=== PATIENT | male | born 1985 | race Caucasian/White ===

== ENCOUNTER 2017-12-24 01:34 | Emergency (ER) | payer OTHER ==
[~2017-12-24] VITALS: Ht 195.6 cm; Wt 122.5 kg
[2017-12-24 01:41] VITALS: BP 113/71
--- NOTE | 2017-12-24 01:49 | NUR ---
PT.BIB TO ER BED 11
--- NOTE | 2017-12-24 02:00 | NUR ---
PATIENT IS A 32 Y/O MALE WHO PRESENTS TO THE ED C/O ABD PAIN. PT STATES THAT HE WAS DINNER AROUND 1700 WHEN HE STARTED FEELING DIZZY. PT REPORTS 8/10 ACHING ABD PAIN THAT DOES NOT RADIATE. PT DENIES CP, SOB, REPORTS NAUSEA/VOMITING DENIES DIARRHEA. PT APPEARS PALE, MILD DIAPHORESIS. PT AAOX4, RR EVEN/UNLABORED, BED IN LOWEST POSITION. ER MD DR. DAUGHERTY NOTIFIED. WILL CONTINUE TO MONITOR. VOMIT BAG AT BEDSIDE. FAMILY AT BEDSIDE.
[2017-12-24] MEDS ORDERED: NACL 0.9% 1,000 ML IV SCH (02:16)
[2017-12-24] MEDS ORDERED: PANTOPRAZOLE 40 MG INJ VIAL IVP ONE (02:20)
[2017-12-24] MEDS ORDERED: ONDANSETRON 4 MG/2 ML VIAL IVP ONE (02:20)
[2017-12-24] MEDS ORDERED: MORPHINE SULFATE 4 MG/ML SYR IVP ONE ×2 (02:20→08:25)
--- NOTE | 2017-12-24 03:00 | NUR ---
PATIENT RESTING AT THIS TIME. NO ACUTE DISTRESS, NO REPORTS OF CP.
--- NOTE | 2017-12-24 04:00 | NUR ---
PATIENT RESTING AT THIS TIME. NO SIGNS OF DISTRESS.
[2017-12-24] MEDS ORDERED: NACL 0.9% 1,000 ML IV ONE ×3 (04:35→08:25)
[2017-12-24 05:13] LABS: APPEARANCE,URINE CLEAR (CLEAR); BILIRUBIN,URINE NEGATIVE (NEGATIVE); BLOOD, URINE NEGATIVE (NEGATIVE); COLOR,URINE YELLOW (YELLOW); NITRITE, URINE NEGATIVE (NEGATIVE); PH,URINE 8.5 (5.0-9.0); UGLUCOSE NEGATIVE (NEGATIVE)
[2017-12-24 05:16] LABS: LEUKOCYTE ESTERASE ,URINE NEGATIVE (NEGATIVE)
[2017-12-24 05:40] LABS: WHITE BLOOD COUNT (AUTO) 12.4 K/uL (4.8-10.8)
[2017-12-24 05:41] LABS: HEMATOCRIT 45.3 % (36-52); MEAN CORPUSCULAR HEMOGLOBIN 29 pg (27-31); MEAN CORPUSCULAR HGB CONC 33 g/dL (33-37); MEAN CORPUSCULAR VOLUME 88.8 fL (80-94); PLATELET COUNT (AUTO) 248 K/uL (140-450); RED BLOOD CELL COUNT(AUTO) 5.11 MIL/uL (4.20-6.10); RED CELL DISTRIBUTION WIDTH 13.2 % (11.6-13.7)
[2017-12-24 05:42] LABS: BASOPHILS # (AUTO) 0.1 K/uL (0.00-0.22); BASOPHILS % (AUTO) 0.6 % (0.0-2.0); LYMPHOCYTES # (AUTO) 0.5 K/uL (2.0-11.5); LYMPHOCYTES % (AUTO) 3.9 % (20.5-51.1); MONOCYTES # (AUTO) 0.2 K/uL (0.8-1.0); MONOCYTES % (AUTO) 1.4 % (1.7-9.3); NEUTROPHILS # (AUTO) 11.6 K/uL (1.8-7.7); NEUTROPHILS % (AUTO) 94.1 % (42.2-75.2)
--- NOTE | 2017-12-24 06:00 | NUR ---
PATIENT IS RESTING AT THIS TIME. NO SIGNS OF DISTRESS.
--- NOTE | 2017-12-24 06:20 | NUR ---
PT C/O PRESSURE IN EPIGASTRIC AREA. KEEGAN NELSON MADE AWARE.
--- NOTE | 2017-12-24 07:00 | NUR ---
Pt report given to FELICITA GOODEN. Transfer of care at this time.
--- NOTE | 2017-12-24 07:10 | NUR ---
PT. IN BED RESTING COMFORTABLY, RR EVEN AND UNLABORED, AAOX4, FLUIDS RUNNING, IV INTACT, PT. STATES " IM FEELING BETTER". MOTHER IS AT BEDSIDE. WILL CONTINUE TO MONITOR.
[2017-12-24 07:18] LABS: ANION GAP 18.9 (8-16); CARBON DIOXIDE 20.4 mmol/L (21-32); CHLORIDE 103 mmol/L (98-107); POTASSIUM 4.3 mmol/L (3.5-5.1); SODIUM SERUM 138 mmol/L (136-145)
[2017-12-24 07:19] LABS: ASPARTATE AMINOTRANSFERASE 19 U/L (15-37); CREATININE 1.1 mg/dL (0.7-1.3); GFR ARICAN-AMERICAN 100 mL/min (>90); GLUCOSE 156 mg/dL (74-106); UREA NITROGEN, BLOOD 18 mg/dL (7-18)
[2017-12-24 07:20] LABS: ALBUMIN 4.1 g/dL (3.4-5.0); AMYLASE 75 U/L (25-115); LIPASE 125 U/L (73-393)
--- NOTE | 2017-12-24 08:10 | NUR ---
PT. AMBULATED TO RESTROOM, STEADY GAIT, RR EVEN AND UNLABORED, DENIES ANY DIZZINESS , DENIES NAUSEA AT THIS TIME. WILL CONTINUE TO MONITOR.
--- NOTE | 2017-12-24 08:56 | NUR ---
PT. BACK FROM CT SCAN . VIA GLORRASTA. RR EVEN AND UNLABORED.
--- NOTE | 2017-12-24 10:51 | NUR ---
PT. RESTING IN BED COMFORTABLY, RR EVEN AND UNLABORED, SISTER AT BEDSIDE. BED IN LOWEST POSTION, WILL CONTINUE TO MONITOR.
--- NOTE | 2017-12-24 12:42 | NUR ---
PT. AAOX4, RESTING COMFORTABLY IN BED, NO CONDITION CHANGE AT THIS TIME, BED IN LOWEST POSITION. WILL CONTINUE TO MONITOR.
[2017-12-24 14:31] VITALS: BP 134/79
--- NOTE | 2017-12-24 14:31 | NUR ---
Patient discharged with v/s stable. Written and verbal after care instructions given and explained. Patient alert, oriented and verbalized understanding of instructions. Ambulatory with steady gait. All questions addressed prior to discharge. ID band removed. Patient advised to follow up with PMD. Rx of norco, reglan, ibuprofen given. Patient educated on indication of medication including possible reaction and side effects. Opportunity to ask questions provided and answered.
== END 2017-12-24 14:31 | disposition home or self-care (01) ==
LOC: MED 01:34
DX: K80.20 Calculus of gallbladder without cholecystitis without obstruction (principal)
CPT/HCPCS: 36415; 74176; 76705; 80053; 81003; 82150; 83605; 83690; 85025; 87040; 93005; 96361; 96374; 96375; 99285; C9113; J2270; J2405; Q0092

== ENCOUNTER 2018-05-21 20:43 | Emergency (ER) | payer OTHER ==
[~2018-05-21] VITALS: Ht 182.9 cm; Wt 126.2 kg
[2018-05-21 20:43] VITALS: BP 127/82
--- NOTE | 2018-05-21 20:44 | NUR ---
PATIENT AMBULATED TO ER BED 8.
--- NOTE | 2018-05-21 20:45 | NUR ---
PT IS A 32 Y/O MALE WHO PRESENTS TO THE ED C/O FINGER PAIN TO LEGT 2ND DIGIT. PT STATES THAT IT HAS BEEN GOING ON X1 WEEK, WAS SEEN AT URGENT CARE WITH GIVEN RX CLINDAMYCIN. PT DENIES TRAUMA AND INJURY. PT DENIES PAIN AT THIS TIME. NOTED MILD SWELLING, MILD ECCHYMOSIS, +PMSC. PT DENIES CP, SOB, N/V/D. PT AWAKE AND ALERT, RR EVEN/UNLABORED. PT REPOSITIONED FOR COMFORT, BED IN LOWEST POSITION. ER MD DR. OLIVIER NOTIFIED. WILL CONTINUE TO MONITOR. PMH: CHOLECYSTECTOMY
--- NOTE | 2018-05-21 20:55 | NUR ---
DR. OLIVIER EVALUATING PATIENT.
--- NOTE | 2018-05-21 21:54 | NUR ---
PATIENT RESTING AT THIS TIME. NO SIGNS OF DISTRESS.
--- NOTE | 2018-05-21 22:39 | NUR ---
XRAY AT BEDSIDE.
--- NOTE | 2018-05-21 22:54 | NUR ---
PATIENT RESTING AT THIS TIME. NO SIGNS OF DISTRESS.
--- NOTE | 2018-05-21 23:30 | NUR ---
AWAITING DISCHARGE PPWK FROM DR. SHEIKH.
[2018-05-22 00:10] VITALS: BP 122/75
--- NOTE | 2018-05-22 00:16 | NUR ---
Patient discharged with v/s stable. Written and verbal after care instructions given and explained. Patient alert, oriented and verbalized understanding of instructions. Ambulatory with steady gait. All questions addressed prior to discharge. ID band removed. Patient advised to follow up with PMD. Rx of BACTRIM DS 800MG-160MG, NAPROSYN 375MG given. Patient educated on indication of medication including possible reaction and side effects. Opportunity to ask questions provided and answered.
== END 2018-05-22 00:10 | disposition home or self-care (01) ==
LOC: MED 20:43
DX: S60.022A Contusion of left index finger without damage to nail, initial encounter (principal); X58.XXXA Exposure to other specified factors, initial encounter; Y93.89 Activity, other specified; Y92.89 Other specified places as the place of occurrence of the external cause; Y99.8 Other external cause status
CPT/HCPCS: 73140; 99284; Q0092